=== PATIENT | female | born 1965 | race Caucasian/White ===

== ENCOUNTER 2016-08-02 14:13 | Emergency (ER) | payer OTHER ==
[~2016-08-02] VITALS: Ht 175.3 cm; Wt 94.3 kg
[2016-08-02 14:49] VITALS: BP 125/64
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
[2016-08-02] MEDS ORDERED: PERCOCET 5-3251 EACH PO (15:16)
[2016-08-02] MEDS ORDERED: IBUPROFEN800 M1 PO ×2 (15:16→15:49)
== END 2016-08-02 15:55 ==
LOC: ERH 14:13
DX: T21.22XA Burn of second degree of abdominal wall, initial encounter (principal); T23.272A Burn of second degree of left wrist, initial encounter; X10.0XXA Contact with hot drinks, initial encounter; Y92.9 Unspecified place or not applicable; Y93.9 Activity, unspecified
CPT/HCPCS: 90471; 90714